=== PATIENT | female | born 1975 | race Caucasian/White ===

== ENCOUNTER 2025-07-27 01:53 | Emergency (ER) | payer SELFPAY ==
[2025-07-27] VITALS (13 sets, daily range): BP systolic 137–165; BP diastolic 77–94; PULSE 73–84; RESP 11–21; TEMP 36.6–36.7; O2SAT 95–99; BMI 39.1
--- NOTE | 2025-07-27 02:18 | EKG12_ITS ---
Test Reason : CP Blood Pressure : */* mmHG Vent. Rate : 71 BPM Atrial Rate : 71 BPM P-R Int : 196 ms QRS Dur : 96 ms QT Int : 388 ms P-R-T Axes : 14 6 38 degrees QTcB Int : 421 ms Normal sinus rhythm Minimal voltage criteria for LVH, may be normal variant ( Sokolow-Sanchez ) Borderline ECG Confirmed by SETH CUELLAR, SHANNON ([id number]), food editor MIGUEL FAIRCHILD ([id number]) on 07/30/2025 9:08:10 AM Referred By: Confirmed By: SHANNON ANN MD
[2025-07-27 02:24] LABS: Hematocrit 31.6 % (37-47); Hemoglobin 9.4 g/dL (12.0-15.0); Immature Granulocytes Count 0.030 X10^3/uL (0.0-0.0); Mean Corp Hgb Conc 29.7 g/dL (32-36); Mean Corpuscular Volume 70.7 fL (81-99); Mean Platelet Vol. 8.8 fl (6.2-12.0); NRBC Flagged by Analyzer 0 % (0-5); Platelet Count 432 K/mm3 (150-450); RBC Distribution Width CV 17.2 % (11.6-14.6); RBC Distribution Width SD 43.5 fl (35.1-43.9); Red Blood Count 4.47 M/mm3 (4.2-5.4); White Blood Count 11.0 K/mm3 (4.4-11.0)
[2025-07-27 02:34] LABS: Internal QC Validated? YES +Cl - CLEAR BKGD; Pregnancy, Serum, hCG Quali. NEGATIVE Negative; Record Kit Lot#, Serum Preg. 0000947241
[2025-07-27 02:37] LABS: D-Dimer Quantitative (DVT/PE) 0.27 FEU/ug/m (0.27-0.49)
--- NOTE | 2025-07-27 02:39 | RAD_ITS ---
PROCEDURE: CHEST PA AND LATERAL 07/27/2025 REASON FOR EXAM: CHEST PAIN TECHNIQUE: Procedure Code: RADCXR Modality: DX Procedure: CHEST PA AND LATERAL COMPARISON: None. FINDINGS: The lungs are expanded. There is no demonstrated parenchymal abnormality. There is no demonstrated pleural abnormality. Normal heart and pericardium. Normal mediastinum and jose. Normal visualized pulmonary arteries. Normal visualized aortic arch and descending thoracic aorta. Normal visualized thoracic spine. Normal visualized ribs, clavicles, and shoulders. There is no demonstrated abnormality of the visualized soft tissue structures of the upper abdomen. RAD/Chest PA and Lateral IMPRESSION: No evidence for acute abnormality. Reading Location: [facility]
--- NOTE | 2025-07-27 02:41 | EX.ED.DYSGE1 ---
HPI History of Present Illness Chief Complaint: Chest Pain Informant: patient, spouse/S.O. and EMS Narrative Narrative: Patient is a 50-year-old female with a past medical history of iron deficiency anemia. She states she woke up around midnight with pain in the midsternal to left-sided chest. She states that it then began to radiate towards her left shoulder. She states that there was no associated nausea vomiting diaphoresis or shortness of breath. She states that she does not have upper abdominal discomfort. She denies any recent trauma or excessive activity. She states she was unsure if this could be potential cardiac in nature and therefore EMS was notified. She states however by the time she got to the ER her symptoms have spontaneously improved. PFSH PFSH Home Medications ?Medication ?Instructions ?Recorded ?Last Taken ?Type NK 07/27/25 Unknown History Allergy/AdvReac Type Severity Reaction Status Date / Time No Known Allergies Allergy Verified 07/27/25 01:54 Surgical History (Updated 07/27/25 @ 02:01 by Tata Mckeon) Hx of hernia repair Hx of section Social History Smoking Status: Never smoker ROS ROS ED Constitutional Constitutional ED: Denies chills or fever(s) Eyes Eyes: Denies change in vision ENT ENT ED: Denies sore throat Cardiovascular Cardiovascular: Reports chest pain; Denies palpitations or racing heartbeat Respiratory/Chest Respiratory/Chest: Denies cough or dyspnea Gastrointestinal Gastrointestinal: Denies abdominal pain, diarrhea, nausea or vomiting Genitourinary Genitourinary ED: Denies dysuria Musculoskeletal Musculoskeletal: Reports back pain Integumentary Denies rash Neurologic Neurologic: Denies headache(s) Hematologic/Lymphatic Hematologic/Lymphatic: Denies easy bleeding or easy bruising EXAM Physical Exam Const Vital Signs: 07/27/25 01:54 07/27/25 02:01 07/27/25 02:07 Temperature 98.1 F Temperature Source Oral Pulse Rate 74 80 Respiratory Rate 16 18 Respiratory Effort Normal Non-Labored Blood Pressure Blood Pressure Mean Pulse Ox 97 99 Oxygen Delivery Method Room Air 07/27/25 02:11 07/27/25 02:15 07/27/25 02:15 Temperature Temperature Source Pulse Rate 84 Respiratory Rate 14 Respiratory Effort Blood Pressure 165/94 H 155/94 H 155/94 H Blood Pressure Mean 115 111 111 Pulse Ox 97 Oxygen Delivery Method 07/27/25 02:15 07/27/25 02:30 07/27/25 02:45 Temperature Temperature Source Pulse Rate 77 76 82 Respiratory Rate 12 21 H 18 Respiratory Effort Blood Pressure 155/94 H Blood Pressure Mean 111 Pulse Ox 97 97 97 Oxygen Delivery Method 07/27/25 03:00 07/27/25 03:15 07/27/25 03:30 Temperature Temperature Source Pulse Rate 74 74 73 Respiratory Rate 13 11 L 12 Respiratory Effort Blood Pressure 143/87 H 137/77 H Blood Pressure Mean 102 95 Pulse Ox 95 97 95 Oxygen Delivery Method 07/27/25 03:45 07/27/25 04:00 07/27/25 04:15 Temperature Temperature Source Pulse Rate 76 74 76 Respiratory Rate 19 H 12 13 Respiratory Effort Blood Pressure 137/84 H Blood Pressure Mean 101 Pulse Ox 95 96 95 Oxygen Delivery Method Positive well nourished and well developed General Appearance ED: well developed; Negative for pallor HEENT HEENT Narrative: Normocephalic atraumatic Eyes PERRL and EOMs intact bilaterally General Eye ED: Negative for scleral icterus Neck supple and no JVD Chest Wall Chest Narrative: There is reproducible left anterior chest wall pain along the costal joints rib regions 4-6 that patient states is the same pain she was experiencing No bony deformity or subcutaneous emphysema noted No overlying soft tissue changes to suggest trauma or infection Resp normal respiratory effort and clear to auscultation bilaterally Cardio regular rate and regular rhythm Rate: other Other Details: Heart is regular rate and rhythm without murmurs rubs or gallops Radial and carotid pulses are equal and symmetric No carotid bruit GI normal to inspection, nondistended, normoactive bowel sounds, non-tender, non-distended and no masses GI Narrative: No voluntary guarding or rigidity or pulsatile mass Auscultation: normoactive bowel sounds Palpation: soft Back/Spine no CVA tenderness Extremity normal to inspection Extremity Narrative: No asymmetric edema no pitting edema negative Homans' sign bilaterally Neuro oriented x3, CN's II-XII intact bilaterally and no sensory deficits noted Sensorium / Orientation: alert Motor Exam: strength 5/5 throughout Psych mental status grossly normal Skin no rashes or lesions noted General Skin Exam: Negative for jaundice or pallor MDM MDM MDM Narrative Medical decision making narrative: Patient arrived to the ER hypertensive otherwise with stable vitals. As she reported midsternal to left-sided chest pain with radiation towards the shoulder and/or back there is concern this could be acute coronary syndrome versus cardiac dysrhythmia. Patient also could have atypical presentation for pancreatitis or biliary colic. With the hypertension there is concern this could also be a dissection or pulmonary embolus. Secondary to this a cardiac workup with chest x-ray was performed. EKG showed no sign of cardiac dysrhythmia or ischemia. The initial troponin was 7 and the delta increased by 1 point to a value of 8 which is not clinically significant and indicates no signs of ACS. 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 Chest x-ray revealed no lung pathology such as pneumonia or pneumothorax. D-dimer was normal as well going against dissection or PE. The patient was given IV labetalol and her blood pressure reduced between 15 and 25% which is the goal reduction in the ER. Moreover she had resolution of her chest discomfort. Therefore this time as vitals are stable her chest pain has resolved and overall workup is negative I do not feel there is need for further evaluation in the hospital and she is otherwise safe for discharge. History & Record Review Discussion w/independent historian: Patient and Significant other Lab Data Attestation: I reviewed the patient's lab results. Labs: Laboratory Results - last 24 hr 07/27/25 07/27/25 01:35 03:35 WBC 11.0 RBC 4.47 Hgb 9.4 L Hct 31.6 L MCV 70.7 L MCH 21.0 L MCHC 29.7 L RDW Std Deviation 43.5 RDW Coeff of Virgen 17.2 H Plt Count 432 MPV 8.8 Immature Gran % (Auto) 0.300 Neut % (Auto) 55.5 Lymph % (Auto) 36.8 [place] % (Auto) 6.0 Eos % (Auto) 0.9 Baso % (Auto) 0.5 Absolute Neuts (auto) 6.1 Absolute Lymphs (auto) 4.04 Nucleated RBC % 0 D-Dimer Quant (PE/DVT) 0.27 Sodium 139 Potassium 3.6 Chloride 102 Carbon Dioxide 24.8 Anion Gap 12 BUN 8 Creatinine 0.71 Estim Creat Clear Calc 113.48 Est GFR (MDRD) Non-Af 105 BUN/Creatinine Ratio 11.9 Glucose 105 H Calcium 9.5 Magnesium 2.1 Total Bilirubin 0.28 Direct Bilirubin 0.12 AST 13 ALT 14 Alkaline Phosphatase 71 Troponin T High Sens 7 Troponin T Hi Sens 2 Hr 8 Total Protein 7.8 Albumin 4.4 Globulin 3.4 Lipase 22 Serum , Qual NEGATIVE Radiography Diagnostic Testing: Clinical Impression(s) from Imaging Studies Chest X-Ray 07/27/25 02:39 IMPRESSION: No evidence for acute abnormality. Reading Location: [place] [id number] 2 view chest x-ray as interpreted by the emergency medicine physician reveals no acute infiltrate pneumothorax pleural effusion or widening the mediastinum Discharge Plan Triage Chief Complaint: Chest Pain ED Provider: Patrick Knowles Dx/Rx/DC Orders Clinical Impression: Nonspecific chest pain, Iron deficiency anemia, Hypertension Instructions: ED Anemia, Iron-Deficiency (Adult), ED Chest Pain, Uncertain Cause, ED Hypertension, To Be Confirmed Prescriptions: No Action NK Primary Care Provider: Jesus Chavez Referrals: Town Doctor,Out of [Non-Staff] - Activity Restrictions/Additional Instructions: Your workup today showed no sign of active heart damage or concerns for a blood clot or dissection. Your blood pressure was elevated which could have contributed to your symptoms. Please talk to your family doctor about starting a blood pressure medication secondary to this. Also your blood volume is low at 9.4 and this is related to your low iron. Please discuss with your family doctor starting a iron supplement to help resolve this aspect. Return to the ER should you have any further concerns Print Language: Japanese Disposition Disposition: Home, Self Care
[2025-07-27 02:50] LABS: Troponin T High Sensitivity 7 ng/L (<=14)
[2025-07-27 02:51] LABS: AST(SGOT) 13 U/L (<=31); Alanine Aminotransfer ALT/SGPT 14 U/L (<=34); Albumin, Serum 4.4 g/dL (3.5-5.0); Alkaline Phosphatase 71 U/L (35-104); BUN 8 mg/dL (4-19); BUN/Creat Ratio 11.9 RATIO (10-20); Bilirubin, Direct 0.12 mg/dL (0.00-0.30); Calcium,Total 9.5 mg/dL (7.6-11.0); Chloride 102 mmol/L (98-108); Estimated Creatinine Clearance 113.48 ml/min (50-250); Globulin 3.4 g/dL (2.2-4.2); Glucose 105 mg/dL (70-99); Lipase 22 U/L (13-75); Magnesium 2.1 mg/dL (1.5-2.2); Potassium 3.6 mmol/L (3.3-5.1)
[2025-07-27 02:52] LABS: Anion Gap 12 (5-15); Carbon Dioxide 24.8 mmol/L (21.0-32.0)
[2025-07-27 04:23] LABS: Troponin T High Sens 2 HR 8 ng/L (<=14)
== END 2025-07-27 04:47 | disposition home or self-care (01) ==
PROVIDERS: Emergency Provider Emergency Medicine; PCP Family Medicine; Visit Provider Emergency Medicine
DX: R07.9 Chest pain, unspecified (principal); I10 Essential (primary) hypertension; D50.9 Iron deficiency anemia, unspecified
CPT/HCPCS: 36415; 71046; 80048; 80076; 83690; 83735; 84484; 84703; 85025; 85379; 93005; 96374; 99285; A4216